=== PATIENT | male | born 1935 | race Caucasian/White ===

== ENCOUNTER → 2017-09-02 11:03 | Outpatient (CLI) | payer MEDICARE, OTHER, SELFPAY ==
[2017-09-02 13:14] LABS: Blood Urea Nitrogen 23 mg/dL (9-20); Estimated Glomerular Filt Rate > 60.0 mL/min (>60)
== END ==
PROVIDERS: PCP Family Medicine; Visit Provider Urology
DX: N28.89 Other specified disorders of kidney and ureter (principal)
CPT/HCPCS: 36415; 82565; 84520

== ENCOUNTER → 2017-09-09 09:00 | Outpatient (CLI) | payer MEDICARE, OTHER, SELFPAY ==
--- NOTE | 2017-09-09 | DI.CT.S_ITS ---
PROCEDURE: CT ABDOMEN WO/W CON INDICATIONS: Renal mass TECHNIQUE: Optional 5 mm thick noncontrast images acquired from the diaphragm to the iliac crests. After the administration of intravenous contrast, 5 mm thick images again acquired from the diaphragm to the iliac crests in the arterial and urographic phases. 5 mm thick coronal and sagittal reformats were then acquired. For radiation dose reduction, the following was used: automated exposure control, adjustment of mA and/or kV according to patient size. COMPARISON: [facility], CT, ABDOMEN W&WO CONTRAST, 09/03/2016, 17:18. FINDINGS: Image quality: Excellent. Lung bases: Scarring and early interstitial pulmonary fibrosis is seen in visualized bilateral lung bases. 5 mm calcified granuloma is noted in posterolateral aspect of left lung base. Previously noted 2 mm nodule in the right middle lobe remains unchanged and is consistent with benign process. Genitourinary: Previously described 2 cm lesion within the left lateral renal cortex is again seen, and remains unchanged in size and appearance. This structure measures 47 Hounsfield unit in density on noncontrast enhanced study. The density measures 45 Hounsfield unit during arterial phase and 53 Hounsfield unit during delayed phase. These values are not significantly changed from previous study. Left renal vein appears patent and unremarkable. Additional subcentimeter bilateral renal cysts are seen. 1.5 cm exophytic cyst involving the posterior medial cortex of mid to lower pole left kidney is again seen and unchanged. No new renal lesion is identified. Normal excretion of contrast is seen bilaterally with no filling defect seen in the bilateral renal pelvis or bilateral proximal ureters. Other solid organs: Liver is normal in size and enhancement. Gallbladder is within normal limits. Biliary system is non dilated. Pancreas enhances normally. Spleen is normal in size and enhancement. No adrenal nodules. Peritoneum and bowel: Small hiatal hernia is seen. Unenhanced bowel loops are normal in wall thickness and caliber. No free fluid or air. The appendix is visualized and is within normal limits. Nodes and vessels: No retroperitoneal or mesenteric adenopathy by size criteria. Atherosclerotic calcifications throughout the abdominal aorta is seen. Mild ectasia of infrarenal abdominal aorta is noted, measures up to 2.2 cm in largest AP diameter. No abdominal aortic aneurysm. No aortic dissection. IVC is within normal limits. Bones: No suspicious bony lesions. No vertebral body compression fractures. Miscellaneous: Tiny fat containing ventral hernia is again seen and unchanged from previous study. IMPRESSION: 1. Stable 2 cm left cortical renal lesion with mild enhancement seen on delayed phase of the scan, unchanged in size and appearance from previous study. Continued CT surveillance is recommended. 2. No other enhancing renal lesion is seen. No hydronephrosis. Stable appearing bilateral renal cysts. Dictated by: Ralf Govea M.D. on 09/09/2017 at 10:19 Approved by: Ralf Govea M.D. on 09/09/2017 at 16:47
== END ==
PROVIDERS: PCP Family Medicine; Visit Provider Urology
DX: N28.89 Other specified disorders of kidney and ureter (principal); N28.1 Cyst of kidney, acquired
CPT/HCPCS: 74170; Q9967